=== PATIENT | male | born 1980 | race Caucasian/White ===

== ENCOUNTER 2017-05-17 16:31 | Emergency (ER) | payer OTHER ==
[~2017-05-17] VITALS: Ht 175.3 cm; Wt 74.8 kg
[2017-05-17 17:50] VITALS: BP 123/78
--- NOTE | 2017-05-17 19:35 | Emergency Room Report ---
History of Present Illness General Chief Complaint: Wound Recheck/Suture Removal Source: Patient Present Illness HPI Patient eloped without being seen by me Patient was seen ambulatory in the emergency room, per nursing staff patient left without evaluation Allergies: Coded Allergies: HALOPERIDOL (Verified Allergy, Severe, Anaphylaxis, 05/17/17) Nursing Documentation-[facility] Past Medical History: No Stated History Physical Exam Vital Signs Date Time Temp Pulse Resp B/P (MAP) Pulse Ox O2 Delivery O2 Flow Rate FiO2 05/17/17 16:48 97.9 84 18 123/78 98 Room Air Medical Decision Making Diagnostic Impression: Primary Impression: eloped Last Vital Signs Date Time Temp Pulse Resp B/P (MAP) Pulse Ox O2 Delivery O2 Flow Rate FiO2 05/17/17 17:50 84 18 123/78 98 Room Air 05/17/17 16:48 97.9 Disposition: ELOPED Condition: Unknown Referrals: [facility],REFERRING (PCP) Buddy Briseno M.D. May 17, 2017 19:35
== END 2017-05-17 17:50 | disposition left against medical advice (07) ==
LOC: EMR 17:08
DX: Z48.02 Encounter for removal of sutures (principal); Z53.21 Procedure and treatment not carried out due to patient leaving prior to being seen by health care provider
CPT/HCPCS: 99281